=== PATIENT | male | born 1950 | race Caucasian/White ===

== ENCOUNTER 2017-10-08 18:12 | Emergency (ER) | payer OTHER ==
[2017-10-08 18:21] VITALS: BMI 29.3
[2017-10-08] MEDS ORDERED: TYLENOL 500 MG TAB EXTRA STRENGTH PO ONE ×2 (21:31→21:34)
[2017-10-08] MEDS ORDERED: TORADOL 30 MG VIAL IVP ONE (21:32)
[2017-10-08] MEDS ORDERED: TORADOL 30 MG VIAL ONE (21:33)
[2017-10-08 21:54] LABS: BILIRUBIN,URINE NEGATIVE (NEGATIVE); BLOOD/HEMOGLOBIN,URINE 4+ (NEGATIVE); GLUCOSE, URINE NEGATIVE (NEGATIVE); KETONES,URINE NEGATIVE (NEGATIVE); LEUKOCYTE ESTERASE ,URINE NEGATIVE (NEGATIVE); NITRITES,URINE NEGATIVE (NEGATIVE); PROTEIN,URINE 1+ (NEGATIVE); UROBILINOGEN,URINE NORMAL (NORMAL)
[2017-10-08 22:05] LABS: BASOPHILS % (AUTO) 0.7 % (0.2-1.0); EOSINOPHILS # (AUTO) 0.1 x10^3/uL (0.0-0.2); EOSINOPHILS % (AUTO) 0.9 % (0.9-2.9); HEMATOCRIT 48.2 % (42.0-54.0); MEAN CORPUSCULAR HEMOGLOBIN 28.3 pg (27.0-34.0); MEAN CORPUSCULAR HGB CONC 33.3 g/dL (33.0-35.0); MEAN PLATELET VOLUME 8.3 fL (7.4-11.0); MONOCYTES # (AUTO) 1.1 x10^3/uL (0.3-0.8); MONOCYTES % (AUTO) 18.2 % (0.0-13.0); NEUTROPHILS # (AUTO) 3.7 x10^3/uL (2.2-4.8); NEUTROPHILS % (AUTO) 63.2 % (42.0-75.0); PLATELET COUNT 135 X10^3/uL (150.0-450.0); RED BLOOD COUNT 5.67 X10^6/uL (4.7-6.0); RED CELL DISTRIBUTION WIDTH 15.6 % (11.6-16.5); WHITE BLOOD COUNT 5.8 X10^3/uL (3.6-10.0)
[2017-10-08 22:22] LABS: ALANINE AMINOTRANSFERASE 26 Units/L (12-78); ALBUMIN 3.9 g/dL (3.4-5.0); ALKALINE PHOSPHATASE 74 Units/L (46-116); ASPARTATE AMINO TRANSFERASE 21 Units/L (15-37); BLOOD UREA NITROGEN 14 mg/dL (7-18); CALCIUM 8.3 mg/dL (8.5-10.1); CARBON DIOXIDE 27.7 mmol/L (21-32); CHLORIDE 101 mmol/L (98-107); CREATININE 1.26 mg/dL (0.70-1.30); SODIUM 139 mmol/L (136-145); TOTAL PROTEIN 7.4 g/dL (6.4-8.2); eGFR BLACK RACES > 60 (>60); eGFR NON BLACK RACES > 60 (>60)
[2017-10-08 22:22] LABS: APPEARANCE,URINE CLEAR (CLEAR); COLOR,URINE YELLOW (YELLOW)
[2017-10-08 22:23] LABS: BACTERIA,URINE NEGATIVE /HPF (NEGATIVE); SQUAMOUS EPITHELIAL CELL,UR FEW /HPF (NEGATIVE)
--- NOTE | 2017-10-08 22:39 | DR.GENAD ---
HPI - PCP Primary Care Physician: FRIDA - HPI Comment HPI Comment: HISTORY BELOW. - Complaint/Symptoms Chief Complaint Doctors Comments: PATIENT WORSE TODAY. WEAK AND DRAIN OF ENERGY. COUGH IS PRODUCTIVE, YELLOW SPUTUM. Chief Complaint:: SOB,SORE THROAT, COUGHING FOR 2 DAYS Self Treatment fo Chief Complaint: MUCINEX OTC, - Nurses notes reviewed Nurses Notes Review: Yes - Source History Provided: Patient - Mode of Arrival Mode of Arrival: Ambulatory - Timing Onset of Chief Complaint: 10/06/17 Came on: Suddenly - Duration Duration: Constant Duration: Days - Severity Severity: Moderate PMH - PMH Past Medical History: Yes Past Medical History: Anxiety, Kidney Stones Past Surgical History: Yes Surgical History: Other Past Surgical History Comment: BRAIN SURGERY, TESTICULAR SURGEY - Family History History of Family Medical Conditions: Yes Family Medical History: Cancer - Social History Does any household member use tobacco: Yes Alcohol Use: DAILY Do you use any recreational Drugs:: No Lives With: Spouse, Family Lives Where: Home - infectious screening In the last 2 months have you had wt loss of >10#?: NO Have you had fever, night sweats or hemotysis?: No Have you traveled outside the country in the last 6 months?: No Isolation: Standard ROS - Review of Systems Constitutional: Fever, Weakness, Fatigue. negative: Chills Eyes: No Symptoms Reported. negative: Eye Pain, Discharge ENTM: Nose Discharge, Nose Congestion, Throat Pain. negative: Ear Pain Respiratoy: Productive Cough, Short of Breath, Wheezing. negative: Hemoptysis Cardiovascular: No Symptoms Reported. negative: Chest Pain, Edema Gastrointestinal/Abdominal: No Symptoms Reported. negative: Abdominal Pain, Diarrhea, Nausea, Vomiting Genitourinary: No Symptoms Reported. negative: Dysuria, Frequency, Hematuria Neurological: Headache, Weakness, Dizziness Musculoskeletal: No Symptoms Reported, Muscle Pain Integumentary: No Symptoms Reported Hematologic/Lymphatic: No Symptoms Reported Endocrine: No Symptoms Reported All Other Systems: Reviewed and Negative PE - Vital Signs Vitals: Temperature 98.9 F Pulse Rate [Left] 83 Pulse Rate 84 Respiratory Rate 16 Blood Pressure [Left Arm] 139/68 Blood Pressure 148/70 O2 Sat by Pulse Oximetry 97 - General Limitations: No Limitations General Appearance: Alert - Head Head Exam: Normal Inspection - Eyes Eye exam: Normal Appearance - ENT ENT Exam: Normal External Ear Exam External Ear Exam: Normal External Inspection TM/Canal Exam: Bilateral Bulging Nose Exam: Sinus Tenderness Mouth Exam: Normal Inspection Throat Exam: Tonsillar Erythema. negative: Tonsillomegaly, Tonsillar Exudate - Neck Neck Exam: Trachea Midline. negative: Tenderness, Meningismus, Lymphadenopathy - Chest Chest Inspection: Symmetric Chest Wall Rise - Respiratory Respiratory Exam: Normal Lung Sounds Bilat Respiratory Exam: Bilateral Rhonchi, Lower Rhonchi - Cardiovascular Cardiovascular Exam: Regular Rate, Normal Rhythm, Normal Heart Sounds - Abdominal Exam Abdominal Exam: Normal Bowel Sounds, Soft. negative: Tenderness - Extremities Extremities Exam: Normal Inspection - Back Back Exam: Normal Inspection - Neurologic Neurological Exam: Alert - Psychiatric Psychiatric Exam: Normal Affect, Normal Mood - Skin Skin Exam: Normal Color MDM - Additional Information Additional Information Obtained From: Family - Differential Diagnosis Differential Diagnosis: PNEUMONIA, BRONCHITIS, SINUSITIS, INFLUENZA Course - Treatment Treatment: SEE ORDERS. - Education/Counseling Education/Counseling: Patient, Family, Education Educated On: Treatment, Diagnosis, Needs for Follow Up ROR - Labs Reviewed Laboratory Results Reviewed?: Yes Result Diagrams: 10/08/17 21:41 10/08/17 21:41 Laboratory: 10/08/17 21:53 Blood Blood Culture - Preliminary 10/08/17 21:41 Blood Blood Culture - Preliminary 10/08/17 21:30 Throat Throat Culture - Preliminary WBC 5.8 X10^3/uL (3.6-10.0) 10/08/17 21:41 RBC 5.67 X10^6/uL (4.7-6.0) 10/08/17 21:41 Hgb 16.0 g/dL (13.5-18.0) 10/08/17 21:41 Hct 48.2 % (42.0-54.0) 10/08/17 21:41 MCV 85.0 fL (80.0-100.0) 10/08/17 21:41 MCH 28.3 pg (27.0-34.0) 10/08/17 21:41 MCHC 33.3 g/dL (33.0-35.0) 10/08/17 21:41 RDW 15.6 % (11.6-16.5) 10/08/17 21:41 Plt Count 135 X10^3/uL (150.0-450.0) L 10/08/17 21:41 MPV 8.3 fL (7.4-11.0) 10/08/17 21:41 Neut % 63.2 % (42.0-75.0) 10/08/17 21:41 Lymph % 17.0 % (21.0-51.0) L 10/08/17 21:41 [place] % 18.2 % (0.0-13.0) H 10/08/17 21:41 Eos % 0.9 % (0.9-2.9) 10/08/17 21:41 Baso % 0.7 % (0.2-1.0) 10/08/17 21:41 Neut # 3.7 x10^3/uL (2.2-4.8) 10/08/17 21:41 Lymph # 1.0 X10^3/uL (1.3-2.9) L 10/08/17 21:41 [place] # 1.1 x10^3/uL (0.3-0.8) H 10/08/17 21:41 Eos # 0.1 x10^3/uL (0.0-0.2) 10/08/17 21:41 Baso # 0.0 X10^3/uL (0.0-0.1) 10/08/17 21:41 Absolute Nucleated RBC 0.0 /100WBC 10/08/17 21:41 Sodium 139 mmol/L (136-145) 10/08/17 21:41 Corrected Sodium TNP 10/08/17 21:41 Potassium 3.7 mmol/L (3.5-5.1) 10/08/17 21:41 Chloride 101 mmol/L (98-107) 10/08/17 21:41 Carbon Dioxide 27.7 mmol/L (21-32) 10/08/17 21:41 BUN 14 mg/dL (7-18) 10/08/17 21:41 Creatinine 1.26 mg/dL (0.70-1.30) 10/08/17 21:41 Est GFR (MDRD) Af Amer > 60 (>60) 10/08/17 21:41 Est GFR (MDRD) Non-Af > 60 (>60) 10/08/17 21:41 Glucose 71 mg/dL (65-99) 10/08/17 21:41 Calcium 8.3 mg/dL (8.5-10.1) L 10/08/17 21:41 Corrected Calcium TNP 10/08/17 21:41 Total Bilirubin 0.40 mg/dL (0.2-1.0) 10/08/17 21:41 AST 21 Units/L (15-37) 10/08/17 21:41 ALT 26 Units/L (12-78) 10/08/17 21:41 Alkaline Phosphatase 74 Units/L (46-116) 10/08/17 21:41 Total Protein 7.4 g/dL (6.4-8.2) 10/08/17 21:41 Albumin 3.9 g/dL (3.4-5.0) 10/08/17 21:41 Globulin 3.5 g/dL (2.5-4.5) 10/08/17 21:41 Albumin/Globulin Ratio 1.1 Ratio (1.1-2.1) 10/08/17 21:41 Specimen Type Clean catch urine 10/08/17 21:49 Urine Color Yellow (YELLOW) 10/08/17 21:49 Urine Appearance Clear (CLEAR) 10/08/17 21:49 Urine pH 5.0 (5.0 - 8.0) 10/08/17 21:49 Ur Specific [place] 1.025 (1.000-1.030) 10/08/17 21:49 Urine Protein 1+ (NEGATIVE) 10/08/17 21:49 Urine Glucose (UA) Negative (NEGATIVE) 10/08/17 21:49 Urine Ketones Negative (NEGATIVE) 10/08/17 21:49 Urine Occult Blood 4+ (NEGATIVE) 10/08/17 21:49 Urine Nitrite Negative (NEGATIVE) 10/08/17 21:49 Urine Bilirubin Negative (NEGATIVE) 10/08/17 21:49 Urine Urobilinogen Normal (NORMAL) 10/08/17 21:49 Ur Leukocyte Esterase Negative (NEGATIVE) 10/08/17 21:49 Urine RBC 5-10 /HPF (NEGATIVE) 10/08/17 21:49 Urine WBC 0-3 /HPF (NEGATIVE) 10/08/17 21:49 Ur Squamous Epith Cells Few /HPF (NEGATIVE) 10/08/17 21:49 Urine Bacteria Negative /HPF (NEGATIVE) 10/08/17 21:49 Ur Culture Indicated? No/not indicated 10/08/17 21:49 Influenza Type A (PCR) Positive (NEGATIVE) A 10/08/17 21:30 Influenza Type B (PCR) Negative (NEGATIVE) 10/08/17 21:30 Streptococcus Screen Negative (NEGATIVE) 10/08/17 21:30 - XRAY XRAY Interpreted by: Radiologist XRAY Findings: REPORT DISCUSS WITH PATIENT AND HIS . - Diagnosis Discharge Problem: Influenza Acute bronchitis Qualifiers: Bronchitis organism: other organism Qualified Code(s): J20.8 - Acute bronchitis due to other specified organisms - Discharge Plan Disposition: 01 HOME, SELF-CARE Condition: Stable Prescriptions: Doxycycline Monohydrate 100 mg PO BID #20 tablet Hydrocodone Polist/Chlorphenir [Tussionex Pennkinetic Susp] 5 ml PO Q12H PRN # 60 ml PRN Reason: Cough Oseltamivir Phosphate [Tamiflu] 75 mg PO BID #10 cap - Follow ups/Referrals Follow ups/Referrals: SKY GODINEZ [Primary Care Provider] - 3 days - Instructions Instructions: Influenza, Adult, [id number], Acute Bronchitis, [id number] Additional Instructions: RETURN TO ED IF WORSE.
[2017-10-09] MEDS ORDERED: TUSSIONEX PENNKINETIC SUSP PO ONE (00:10)
[2017-10-09] MEDS ORDERED: TAMIFLU PO ONE (00:23)
[2017-10-09] MEDS ORDERED: TUSSIONEX PENNKINETIC SUSP ONE (00:24)
[2017-10-09 00:34] VITALS: BP 139/68
[2017-10-09] MEDS ORDERED: TAMIFLU PO SCH (01:00)
== END 2017-10-09 00:30 | disposition home or self-care (01) ==
LOC: ER 18:12
DX: J11.1 Influenza due to unidentified influenza virus with other respiratory manifestations (principal); J20.8 Acute bronchitis due to other specified organisms
CPT/HCPCS: 36415; 80053; 81001; 85025; 87040; 87070; 87502; 87880; 96365; 96374; 99283; 99284; A4222; G9035; J1885